=== PATIENT | male | born 1995 | race Caucasian/White ===

== ENCOUNTER 2019-05-06 18:52 | Emergency (ER) | payer SELFPAY ==
[~2019-05-06] VITALS: Ht 190.5 cm; Wt 127.0 kg
== END 2019-05-06 19:20 | disposition home or self-care (01) ==
LOC: ER 18:52
DX: M54.42 Lumbago with sciatica, left side (principal); S39.012A Strain of muscle, fascia and tendon of lower back, initial encounter
CPT/HCPCS: 99283